=== PATIENT | female | born 1940 | race Caucasian/White ===

== ENCOUNTER 2017-04-28 15:09 | Emergency (ER) | payer SELFPAY, OTHER, MEDICARE | END 2017-04-28 20:39 | disposition left against medical advice (07) | LOC: E/R 20:39 | DX: Z53.21 Procedure and treatment not carried out due to patient leaving prior to being seen by health care provider (principal) | CPT/HCPCS: 93005 ==

== ENCOUNTER 2018-06-21 09:02 | Observation (INO) | payer MEDICARE, OTHER ==
[2018-06-21 10:37] LABS: ADD MAN DIFF? NO
[2018-06-21 10:41] LABS: BASOPHILS % 0.6 % (0.0-2.0); EOSINOPHILS # 0.2 10^3/ul (0.0-0.5); EOSINOPHILS % 3.1 % (0.0-7.0); HEMATOCRIT 37.3 % (37.0-47.0); HEMOGLOBIN 11.6 g/dl (12.0-16.0); LYMPHOCYTES # 2.4 10^3/ul (0.8-2.9); MEAN CORPUSCULAR HEMOGLOBIN 25.1 pg (29.0-33.0); MEAN CORPUSCULAR HGB CONC 31.1 g/dl (32.0-37.0); MEAN CORPUSCULAR VOLUME 80.6 fl (82.0-101.0); MONOCYTE # 0.4 10^3/ul (0.3-0.9); MONOCYTES % 6.6 % (0.0-11.0); NEUTROPHIL # 3.4 10^3/ul (1.6-7.5); NEUTROPHILS % 52.2 % (39.0-77.0); PLATELET COUNT 277 10^3/UL (140-415); RED BLOOD COUNT 4.63 10^6/ul (4.20-5.40); RED CELL DISTRIBUTION WIDTH 15.8 % (11.5-14.5)
[2018-06-21 10:41] LABS: WHITE BLOOD COUNT 6.5 10^3/ul (4.8-10.8)
[2018-06-21 10:55] LABS: ANION GAP 8 (5-13); BLOOD UREA NITROGEN 13 mg/dl (7-20); CALCIUM 9.3 mg/dl (8.4-10.2); CARBON DIOXIDE 28 mmol/L (21-31); CHLORIDE 108 mmol/L (97-110); CREATININE 0.68 mg/dl (0.44-1.00); GLUCOSE 128 mg/dl (70-220); POTASSIUM 3.4 mmol/L (3.5-5.1); SODIUM 144 mmol/L (135-144)
[2018-06-21 11:07] LABS: TROPONIN-I < 0.012 ng/ml (0.000-0.120)
[2018-06-21] MEDS ORDERED: ACETAMINOPHEN 325 MG TAB PO (12:30)
[2018-06-21] MEDS ORDERED: ONDANSETRON 4 MG INJ IV (12:30)
[2018-06-21 12:43] LABS: IRON 48 ug/dl (35-150)
[2018-06-21 12:44] LABS: MAGNESIUM 2.2 mg/dl (1.7-2.5)
[2018-06-21] MEDS: POTASSIUM CHLORIDE (SR) 20 MEQ TAB PO (12:47)
[2018-06-21 12:52] LABS: % IRON SATURATION 14 % SAT (22-52); TOTAL IRON BINDING CAPACITY 332 ug/dl (241-421)
[2018-06-21 13:20] LABS: FERRITIN 7.4 ng/ml (11.1-264.0)
[2018-06-21] MEDS ORDERED: ZOLPIDEM 5 MG TAB PO (18:30)
[2018-06-21] MEDS: SENNA TAB PO (21:00)
[2018-06-21] MEDS: AMLODIPINE 5 MG TAB PO ×2 (21:00→21:59)
[2018-06-21] MEDS: DOCUSATE SODIUM 100 MG CAP PO ×2 (21:00→21:59)
[2018-06-21] MEDS ORDERED: ASPIRIN (EC) 81 MG TAB PO (21:00)
[2018-06-21] MEDS: BACLOFEN 10 MG TAB PO (21:51)
[2018-06-21] MEDS: PANTOPRAZOLE (EC) 40 MG TAB PO (21:51)
[2018-06-21] MEDS: GABAPENTIN 400 MG CAP PO (21:51)
[2018-06-21] MEDS: HYDROCHLOROTHIAZIDE 25 MG TAB PO (21:58)
[2018-06-22] MEDS: PANTOPRAZOLE (EC) 40 MG TAB PO ×2 (05:16→18:13)
[2018-06-22] MEDS: HYDROCODONE/APAP (10/325) TAB PO ×2 (05:18→23:25)
[2018-06-22 05:19] LABS: ADD MAN DIFF? NO
[2018-06-22 05:32] LABS: WHITE BLOOD COUNT 7.4 10^3/ul (4.8-10.8)
[2018-06-22 05:32] LABS: BASOPHILS % 0.5 % (0.0-2.0); EOSINOPHILS # 0.3 10^3/ul (0.0-0.5); EOSINOPHILS % 3.6 % (0.0-7.0); HEMATOCRIT 35.3 % (37.0-47.0); LYMPHOCYTES # 3.2 10^3/ul (0.8-2.9); LYMPHOCYTES % 42.5 % (15.0-51.0); MEAN CORPUSCULAR HEMOGLOBIN 25.1 pg (29.0-33.0); MEAN CORPUSCULAR HGB CONC 31.2 g/dl (32.0-37.0); MEAN CORPUSCULAR VOLUME 80.6 fl (82.0-101.0); MONOCYTE # 0.5 10^3/ul (0.3-0.9); MONOCYTES % 7.1 % (0.0-11.0); NEUTROPHIL # 3.4 10^3/ul (1.6-7.5); NEUTROPHILS % 45.9 % (39.0-77.0); PLATELET COUNT 251 10^3/UL (140-415); RED BLOOD COUNT 4.38 10^6/ul (4.20-5.40); RED CELL DISTRIBUTION WIDTH 15.9 % (11.5-14.5)
[2018-06-22 06:13] LABS: ANION GAP 8 (5-13); BLOOD UREA NITROGEN 14 mg/dl (7-20); CALCIUM 9.3 mg/dl (8.4-10.2); CARBON DIOXIDE 26 mmol/L (21-31); CHLORIDE 110 mmol/L (97-110); CREATININE 0.71 mg/dl (0.44-1.00); GLUCOSE 101 mg/dl (70-220); POTASSIUM 3.7 mmol/L (3.5-5.1); SODIUM 144 mmol/L (135-144)
[2018-06-22] MEDS: GABAPENTIN 400 MG CAP PO ×3 (08:19→21:04)
[2018-06-22] MEDS: BACLOFEN 10 MG TAB PO ×3 (08:19→21:03)
[2018-06-22] MEDS: HYDROCHLOROTHIAZIDE 25 MG TAB PO (08:19)
[2018-06-22] MEDS: SENNA TAB PO (08:19)
[2018-06-22] MEDS: AMLODIPINE 5 MG TAB PO (08:19)
[2018-06-22] MEDS: DOCUSATE SODIUM 100 MG CAP PO (08:19)
[2018-06-22] MEDS: CLOPIDOGREL 75 MG TAB PO (08:19)
[2018-06-22] MEDS: LEVOTHYROXINE 137 MCG TAB PO (10:38)
[2018-06-23] MEDS: LEVOTHYROXINE 137 MCG TAB PO (06:40)
[2018-06-23] MEDS: PANTOPRAZOLE (EC) 40 MG TAB PO ×2 (06:41→18:46)
[2018-06-23] MEDS: BACLOFEN 10 MG TAB PO ×3 (08:25→21:04)
[2018-06-23] MEDS: DOCUSATE SODIUM 100 MG CAP PO (08:26)
[2018-06-23] MEDS: HYDROCHLOROTHIAZIDE 25 MG TAB PO (08:26)
[2018-06-23] MEDS: AMLODIPINE 5 MG TAB PO (08:26)
[2018-06-23] MEDS: SENNA TAB PO (09:00)
[2018-06-23] MEDS: GABAPENTIN 400 MG CAP PO ×3 (09:37→21:04)
[2018-06-23 19:20] LABS: AADO2 Arterial 25.9 mmHg (7.0-24.0); Allen Test ACCEPTAB; Arterial Blood Gas Oxygen Sat 93.8 mmHG (95.0-100.0); Arterial COHb 0.3 % (0.0-3.0); Arterial Fraction of Oxyhgb 93.5 % (93.0-99.0); Arterial HCO3 28.7 mmol/L (22.0-26.0); Arterial MetHb 0 % (0.0-1.5); Arterial pCO2 43.8 mmhg (35-45); MODE ROOM AIR; Site Right Radial
[2018-06-24] MEDS: PANTOPRAZOLE (EC) 40 MG TAB PO ×2 (05:58→17:49)
[2018-06-24] MEDS: LEVOTHYROXINE 137 MCG TAB PO (05:59)
[2018-06-24] MEDS: MECLIZINE 25 MG TAB PO (06:06)
[2018-06-24 06:24] LABS: ADD MAN DIFF? NO
[2018-06-24 06:42] LABS: WHITE BLOOD COUNT 7.3 10^3/ul (4.8-10.8)
[2018-06-24 06:42] LABS: BASOPHILS % 0.4 % (0.0-2.0); EOSINOPHILS # 0.3 10^3/ul (0.0-0.5); EOSINOPHILS % 3.4 % (0.0-7.0); HEMATOCRIT 35.7 % (37.0-47.0); HEMOGLOBIN 11.5 g/dl (12.0-16.0); LYMPHOCYTES # 2.8 10^3/ul (0.8-2.9); LYMPHOCYTES % 37.8 % (15.0-51.0); MEAN CORPUSCULAR HEMOGLOBIN 25.3 pg (29.0-33.0); MEAN CORPUSCULAR HGB CONC 32.2 g/dl (32.0-37.0); MEAN CORPUSCULAR VOLUME 78.6 fl (82.0-101.0); MEAN PLATELET VOLUME 11.4 fl (7.4-10.4); MONOCYTE # 0.5 10^3/ul (0.3-0.9); NEUTROPHIL # 3.7 10^3/ul (1.6-7.5); NEUTROPHILS % 51.3 % (39.0-77.0); PLATELET COUNT 252 10^3/UL (140-415); RED BLOOD COUNT 4.54 10^6/ul (4.20-5.40); RED CELL DISTRIBUTION WIDTH 15.5 % (11.5-14.5)
[2018-06-24 06:59] LABS: ALANINE AMINOTRANSFERASE 65 IU/L (13-69); ALBUMIN 3.7 g/dl (3.3-4.9); ALBUMIN/GLOBULIN RATIO 1.27; ALKALINE PHOSPHATASE 84 IU/L (42-121); ANION GAP 8 (5-13); ASPARTATE AMINO TRANSFERASE 43 IU/L (15-46); BILIRUBIN,INDIRECT 0.4 mg/dl (0-1.1); BILIRUBIN,TOTAL 0.4 mg/dl (0.2-1.3); BLOOD UREA NITROGEN 15 mg/dl (7-20); CALCIUM 9.3 mg/dl (8.4-10.2); CARBON DIOXIDE 29 mmol/L (21-31); CHLORIDE 105 mmol/L (97-110); CREATININE 0.72 mg/dl (0.44-1.00); GLUCOSE 106 mg/dl (70-220); POTASSIUM 3.7 mmol/L (3.5-5.1); SODIUM 142 mmol/L (135-144); TOTAL PROTEIN 6.6 g/dl (6.1-8.1)
[2018-06-24] MEDS: HYDROCHLOROTHIAZIDE 25 MG TAB PO (08:20)
[2018-06-24] MEDS: DOCUSATE SODIUM 100 MG CAP PO (08:21)
[2018-06-24] MEDS: BACLOFEN 10 MG TAB PO ×3 (08:21→20:51)
[2018-06-24] MEDS: GABAPENTIN 400 MG CAP PO ×3 (08:21→20:52)
[2018-06-24] MEDS: SENNA TAB PO (08:22)
[2018-06-24] MEDS: AMLODIPINE 5 MG TAB PO (08:22)
[2018-06-24] MEDS: NA PHOSPHATE/BIPHOS 133 ML ENEMA PR (14:00)
[2018-06-24] MEDS: POLYETHYLENE GLYCOL 17 GM PACKET GTB (20:51)
[2018-06-25] MEDS: HYDROCODONE/APAP (10/325) TAB PO (04:53)
[2018-06-25] MEDS: LEVOTHYROXINE 137 MCG TAB PO (06:43)
[2018-06-25] MEDS: PANTOPRAZOLE (EC) 40 MG TAB PO ×2 (06:43→17:36)
[2018-06-25] MEDS: POLYETHYLENE GLYCOL 17 GM PACKET GTB ×2 (08:46→21:00)
[2018-06-25] MEDS: SENNA TAB PO (08:46)
[2018-06-25] MEDS: GABAPENTIN 400 MG CAP PO ×3 (08:46→21:38)
[2018-06-25] MEDS: AMLODIPINE 5 MG TAB PO (08:47)
[2018-06-25] MEDS: BACLOFEN 10 MG TAB PO ×3 (08:47→21:38)
[2018-06-25] MEDS: MECLIZINE 25 MG TAB PO (08:47)
[2018-06-25] MEDS: DOCUSATE SODIUM 100 MG CAP PO (08:47)
[2018-06-25] MEDS: HYDROCHLOROTHIAZIDE 25 MG TAB PO (08:53)
[2018-06-25] MEDS: MAGNESIUM HYDROXIDE 30ML CUP PO (21:39)
[2018-06-26] MEDS: HYDROCODONE/APAP (10/325) TAB PO (00:26)
[2018-06-26] MEDS: NAPROXEN 500 MG TAB PO (03:21)
[2018-06-26] MEDS: LEVOTHYROXINE 137 MCG TAB PO (06:05)
[2018-06-26] MEDS: PANTOPRAZOLE (EC) 40 MG TAB PO (06:05)
[2018-06-26] MEDS: SENNA TAB PO (07:59)
[2018-06-26] MEDS: POLYETHYLENE GLYCOL 17 GM PACKET GTB (07:59)
[2018-06-26] MEDS: DOCUSATE SODIUM 100 MG CAP PO (07:59)
[2018-06-26] MEDS: GABAPENTIN 400 MG CAP PO ×2 (08:00→13:10)
[2018-06-26] MEDS: BACLOFEN 10 MG TAB PO ×2 (08:00→13:10)
[2018-06-26] MEDS: AMLODIPINE 5 MG TAB PO (08:00)
[2018-06-26] MEDS: HYDROCHLOROTHIAZIDE 25 MG TAB PO (08:01)
[2018-06-26] MEDS ORDERED: CARBOXYMETHYLCELLULOSE 0.5% 0.4 ML OPH BOTH EYES (14:00)
== END 2018-06-26 16:15 | disposition home or self-care (01) ==
LOC: E/R 09:02 → 6WM 12:47
PROVIDERS: Family Medicine
DX: R55 Syncope and collapse (principal); R07.9 Chest pain, unspecified; I67.1 Cerebral aneurysm, nonruptured; I10 Essential (primary) hypertension; E66.9 Obesity, unspecified; Z68.27 Body mass index [BMI] 27.0-27.9, adult; M54.5 Low back pain; M19.90 Unspecified osteoarthritis, unspecified site; E03.9 Hypothyroidism, unspecified; F41.9 Anxiety disorder, unspecified; Z96.651 Presence of right artificial knee joint; Z86.718 Personal history of other venous thrombosis and embolism; D53.9 Nutritional anemia, unspecified; Z79.82 Long term (current) use of aspirin; H91.90 Unspecified hearing loss, unspecified ear; R26.9 Unspecified abnormalities of gait and mobility
CPT/HCPCS: 36415; 36600; 70544; 70553; 71045; 72040; 72072; 72100; 72170; 80048; 80053; 82728; 82803; 83540; 83735; 84439; 84443; 84484; 85025; 93005; 93306; 93880; 97161; 97164; 99285-25; G0378

== ENCOUNTER 2018-10-23 08:47 | Day surgery (SDC) | payer MEDICARE, OTHER ==
[2018-10-23] MEDS ORDERED: LIDOCAINE 2% (SDV) 5 ML INJ (09:31)
[2018-10-23] MEDS ORDERED: PROPOFOL 40 ML (09:31)
== END 2018-10-23 13:28 | disposition home or self-care (01) ==
LOC: GIL 08:47
DX: K29.70 Gastritis, unspecified, without bleeding (principal); I10 Essential (primary) hypertension; E03.9 Hypothyroidism, unspecified; E78.5 Hyperlipidemia, unspecified; Z79.82 Long term (current) use of aspirin
CPT/HCPCS: 43239; 88305; 88312